=== PATIENT | female | born 1965 | race Caucasian/White ===

== ENCOUNTER 2022-07-06 16:34 | Emergency (ER) | payer MEDICAID ==
[2022-07-06] MEDS ORDERED: Acetaminophen/HYDROcodone 325-5 MG Tab PO ONE (17:31)
== END 2022-07-06 17:40 | disposition home or self-care (01) ==
LOC: MW.ED 16:34
DX: H66.001 Acute suppurative otitis media without spontaneous rupture of ear drum, right ear (principal)
CPT/HCPCS: 99283; A9270

== ENCOUNTER 2022-07-26 10:31 | Emergency (ER) | payer MEDICAID ==
[2022-07-26] MEDS ORDERED: Sodium Chloride 0.9% 10 ML Syringe FLUSH PRN (10:59)
[2022-07-26] MEDS ORDERED: Sodium Chloride 0.9% 2.5 ML Syringe FLUSH PRN (10:59)
[2022-07-26] MEDS ORDERED: Ketorolac 30 MG/ML SDV IVPUSH ONE (11:00)
[2022-07-26 11:34] LABS: CARBON DIOXIDE,CO2 25.7 mmol/L (21.0-32.0); POTASSIUM,K 3.8 mmol/L (3.5-5.1)
== END 2022-07-26 12:03 | disposition home or self-care (01) ==
LOC: MW.ED 10:31
DX: M54.12 Radiculopathy, cervical region (principal); I10 Essential (primary) hypertension; E66.9 Obesity, unspecified; Z68.39 Body mass index [BMI] 39.0-39.9, adult
CPT/HCPCS: 36415; 80053; 84484; 85025; 93005; 96374; 96375; 99283; J1885; J3360; J3490; 93010; 99284

== ENCOUNTER 2022-10-14 06:25 | Inpatient (IN) | payer BC, MEDICAID ==
[~2022-10-14 06:25] MED LIST: Famotidine 20 MG/2 ML SDV IVPUSH SCH; Scopolamine 1.5 MG Transdermal Patch TRDERM SCH
[2022-10-14] MEDS: Lactated Ringers 1,000 ML IV SCH ×2 (06:54→13:36)
[2022-10-14] MEDS ORDERED: Famotidine 20 MG/2 ML SDV ONE (06:57)
[2022-10-14] MEDS ORDERED: Ropivacaine 49.25 ML, Ketorolac 30 MG, EPINEPHrine 0.5 MG, cloNIDine 80 MCG in Sodium C... INJECT SCH (07:00)
[2022-10-14] MEDS ORDERED: Propofol 200 MG/20 ML SDV ONE ×4 (07:28→10:05)
[2022-10-14] MEDS ORDERED: fentaNYL 100 MCG/2 ML SDV ONE (07:28)
[2022-10-14] MEDS ORDERED: Dexamethasone 4 MG/ML 5 ML MDV ONE (07:28)
[2022-10-14] MEDS ORDERED: Ondansetron 4 MG/2 ML SDV ONE (07:28)
[2022-10-14] MEDS ORDERED: Lidocaine 2% 5 ML SDV ONE ×2 (07:28→07:34)
[2022-10-14] MEDS ORDERED: Ketorolac 30 MG/ML SDV ONE (07:28)
[2022-10-14] MEDS ORDERED: Bupivacaine 0.5% 10 ML SDV ONE (07:34)
[2022-10-14] MEDS ORDERED: Dexmedetomidine 200 MCG/2 ML SDV ONE (07:34)
[2022-10-14] MEDS ORDERED: Water For Injection, Sterile 20 ML ONE (07:34)
[2022-10-14] MEDS ORDERED: propofoL 50 ML ONE (07:36)
[2022-10-14] MEDS ORDERED: Tranexamic Acid 1,000 MG in Sodium Chloride 0.9% 100 ML IV ONE (08:00)
[2022-10-14] MEDS ORDERED: ceFAZolin 2 GM in Sodium Chloride 0.9% 100 ML IV SCH (08:00)
[2022-10-14] MEDS ORDERED: Naloxone 0.4 MG/ML SDV IVPUSH PRN (08:05)
[2022-10-14] MEDS ORDERED: fentaNYL 50 MCG/ML SDV IVPUSH PRN (08:05)
[2022-10-14] MEDS ORDERED: Ondansetron 4 MG/2 ML SDV IVPUSH PRN ×2 (08:05→10:52)
[2022-10-14] MEDS ORDERED: HYDROmorphone 1 MG/ML Syringe IVPUSH PRN (08:05)
[2022-10-14] MEDS ORDERED: droPERidol 5 MG/2 ML SDV IVPUSH PRN (08:05)
[2022-10-14] MEDS ORDERED: Morphine 2 MG/ML SYRINGE IVPUSH PRN (08:05)
[2022-10-14] MEDS ORDERED: Albuterol 0.083% 2.5 MG/3 ML Neb Soln NEB PRN (08:05)
[2022-10-14] MEDS ORDERED: Metoclopramide 10 MG/2 ML SDV IVPUSH PRN (08:05)
[2022-10-14] MEDS ORDERED: Tranexamic Acid 1,000 MG/10 ML Vial ONE (08:42)
[2022-10-14] MEDS ORDERED: Aluminum Hydroxide/Magnesium Hydroxide/Simethicone XS Susp 30 ML Cup PO PRN (10:52)
[2022-10-14] MEDS ORDERED: diphenhydrAMINE 25 MG Cap PO PRN (10:52)
[2022-10-14] MEDS ORDERED: oxyCODONE 5 MG Tab PO PRN (10:52)
[2022-10-14] MEDS ORDERED: Acetaminophen/oxyCODONE 325-5 MG Tab PO PRN ×2 (10:52→11:14)
[2022-10-14] MEDS ORDERED: Sodium Chloride 0.9% 2.5 ML Syringe FLUSH PRN (10:52)
[2022-10-14] MEDS ORDERED: traMADol 50 MG Tab PO PRN ×2 (10:52→11:24)
[2022-10-14] MEDS ORDERED: Sodium Chloride 0.9% 10 ML Syringe FLUSH PRN (10:52)
[2022-10-14] MEDS ORDERED: Glucagon,Human Recombinant 1 MG Vial IM PRN (11:46)
[2022-10-14] MEDS ORDERED: 50% Dextrose in Water 50 ML Syringe IVPUSH PRN (11:46)
[2022-10-14 12:25] LABS: CARBON DIOXIDE,CO2 25.8 mmol/L (21.0-32.0)
[2022-10-14] MEDS ORDERED: Acetaminophen 325 MG Tab PO PRN (13:00)
[2022-10-14] MEDS: Ketorolac 30 MG/ML SDV IVPUSH SCH ×3 (13:26→22:59)
[2022-10-14] MEDS ORDERED: Magnesium Sulfate/Water 4 GM in Premix Bag 1 BAG IV ONE (14:00)
[2022-10-14] MEDS ORDERED: Magnesium Sulfate/Water 100 ML ONE (14:21)
[2022-10-14] MEDS ORDERED: ceFAZolin 2 GM Vial ONE ×2 (15:27→22:26)
[2022-10-14] MEDS ORDERED: Sodium Chloride 0.9% 100 ML ONE (16:32)
[2022-10-14] MEDS: ceFAZolin 2 GM in Sodium Chloride 0.9% 50 ML IV SCH ×2 (16:34→23:00)
[2022-10-14] MEDS: Insulin Aspart 100 Units/ML 3 ML Pen SUBCUT SCH (17:03)
[2022-10-14] MEDS ORDERED: Aspirin 325 MG Tab ONE (18:03)
[2022-10-14] MEDS: Aspirin 325 MG Tab PO SCH (18:09)
[2022-10-14] MEDS: Docusate Sodium 100 MG Cap PO SCH (20:08)
[2022-10-14] MEDS: Metoprolol Succinate 25 MG Tab.ER PO SCH (22:19)
[2022-10-15] MEDS: Ketorolac 30 MG/ML SDV IVPUSH SCH (04:56)
[2022-10-15] MEDS: Morphine 2 MG/ML SYRINGE IVPUSH PRN ×4 (04:56→21:13)
[2022-10-15 06:32] LABS: CARBON DIOXIDE,CO2 24.6 mmol/L (21.0-32.0); POTASSIUM,K 4.1 mmol/L (3.5-5.1)
[2022-10-15] MEDS: Insulin Aspart 100 Units/ML 3 ML Pen SUBCUT SCH ×3 (06:40→16:56)
[2022-10-15] MEDS ORDERED: Ibuprofen 800 MG Tab PO PRN (09:00)
[2022-10-15] MEDS: Losartan 50 MG Tab PO SCH (09:02)
[2022-10-15] MEDS: Famotidine 20 MG Tab PO SCH (09:04)
[2022-10-15] MEDS: Docusate Sodium 100 MG Cap PO SCH ×2 (09:04→21:12)
[2022-10-15] MEDS: Aspirin 325 MG Tab PO SCH (09:05)
[2022-10-15] MEDS: oxyCODONE 5 MG Tab PO PRN ×2 (09:06→13:49)
[2022-10-15] MEDS: Polyethylene Glycol 3350 Powder 17 GM Packet PO SCH (09:08)
[2022-10-15] MEDS: Cefadroxil 500 MG Cap PO SCH ×2 (13:57→21:12)
[2022-10-15] MEDS: Metoprolol Succinate 25 MG Tab.ER PO SCH (21:12)
[2022-10-16] MEDS: Morphine 2 MG/ML SYRINGE IVPUSH PRN ×2 (00:34→04:18)
[2022-10-16] MEDS: oxyCODONE 5 MG Tab PO PRN ×4 (01:45→16:04)
[2022-10-16 07:06] LABS: CARBON DIOXIDE,CO2 27.4 mmol/L (21.0-32.0); POTASSIUM,K 4.1 mmol/L (3.5-5.1)
[2022-10-16] MEDS: Insulin Aspart 100 Units/ML 3 ML Pen SUBCUT SCH ×3 (08:07→16:59)
[2022-10-16] MEDS ORDERED: Magnesium Sulfate/Water 4 GM in Premix Bag 1 BAG IV ONE (08:07)
[2022-10-16] MEDS: Aspirin 325 MG Tab PO SCH (08:16)
[2022-10-16] MEDS: Polyethylene Glycol 3350 Powder 17 GM Packet PO SCH (08:16)
[2022-10-16] MEDS: Famotidine 20 MG Tab PO SCH (08:16)
[2022-10-16] MEDS: Docusate Sodium 100 MG Cap PO SCH (08:16)
[2022-10-16] MEDS: Losartan 50 MG Tab PO SCH (08:17)
[2022-10-16] MEDS: Ibuprofen 800 MG Tab PO SCH ×2 (08:32→14:01)
[2022-10-16] MEDS: Cefadroxil 500 MG Cap PO SCH (09:20)
== END 2022-10-16 16:45 | disposition home or self-care (01) | DRG 326 ==
LOC: MW.SDS 06:25 → MW.MS 11:27
PROVIDERS: ADMIT Orthopaedic Surgery; ATTEND Orthopaedic Surgery
PROC: 0SRC0J9 Replacement of Right Knee Joint with Synthetic Substitute, Cemented, Open Approach (ICD-10-PCS; principal; 2022-10-14)
DX: M17.11 Unilateral primary osteoarthritis, right knee (principal); I10 Essential (primary) hypertension; G47.33 Obstructive sleep apnea (adult) (pediatric); E66.01 Morbid (severe) obesity due to excess calories; R73.03 Prediabetes; Z68.41 Body mass index [BMI] 40.0-44.9, adult; Z79.84 Long term (current) use of oral hypoglycemic drugs; Z79.82 Long term (current) use of aspirin; Z90.710 Acquired absence of both cervix and uterus; Z79.899 Other long term (current) drug therapy
CPT/HCPCS: 36415; 73560-26-RT; 73560-RT; 80048; 82947; 83735; 85014; 85018; 85025; 86850; 86900; 86901; 97110-GP; 97161-GP; 97530-GP; 99222; 99232; A9270-GY; J0171; J0690; J0735; J1100; J1170; J1885; J2270; J2405; J2704; J2795; J3010; J3475; J3490; J7120

== ENCOUNTER 2022-10-20 13:12 | Emergency (ER) | payer BC, MEDICAID ==
[2022-10-20] MEDS ORDERED: Sodium Chloride 0.9% 2.5 ML Syringe FLUSH PRN ×2 (14:00→14:09)
[2022-10-20] MEDS ORDERED: Sodium Chloride 0.9% 10 ML Syringe FLUSH PRN ×2 (14:00→14:09)
[2022-10-20] MEDS ORDERED: Morphine 4 MG/ML Syringe IVPUSH STA ×2 (14:10→15:36)
[2022-10-20 15:33] LABS: CARBON DIOXIDE,CO2 29.7 mmol/L (21.0-32.0); POTASSIUM,K 4.1 mmol/L (3.5-5.1)
[2022-10-20] MEDS ORDERED: Magnesium Sulfate/Water 2 GM in Premix Bag 1 BAG IV STA (15:44)
[2022-10-20] MEDS ORDERED: Lidocaine 1% 5 ML VIAL ONE (17:18)
[2022-10-20] MEDS ORDERED: Iopamidol 755 MG/ML 500 ML Multipack Bottle IVPUSH ONE (18:08)
== END 2022-10-20 19:56 | disposition home or self-care (01) ==
LOC: MW.ED 13:12
DX: R60.0 Localized edema (principal); M79.661 Pain in right lower leg; R06.00 Dyspnea, unspecified; I10 Essential (primary) hypertension; E11.9 Type 2 diabetes mellitus without complications; E66.9 Obesity, unspecified; Z68.42 Body mass index [BMI] 45.0-49.9, adult; Z79.899 Other long term (current) drug therapy; Z79.84 Long term (current) use of oral hypoglycemic drugs; Z79.82 Long term (current) use of aspirin; Z90.710 Acquired absence of both cervix and uterus
CPT/HCPCS: 36415; 71045; 71275; 80053; 81003; 83735; 84484; 85025; 85379; 85610; 93005; 93970; 96365; 96375; 96376; 99285; J2270; J3475; J3490; Q9967; 36410; 93010; 99284

== ENCOUNTER 2023-03-23 09:53 | Day surgery (SDC) | payer BC, MEDICAID ==
[~2023-03-23 09:53] MED LIST changes: +Albuterol 0.083% 2.5 MG/3 ML Neb Soln NEB PRN; -Famotidine 20 MG/2 ML SDV IVPUSH SCH; +HYDROmorphone 1 MG/ML Syringe IVPUSH PRN; +Metoclopramide 10 MG/2 ML SDV IVPUSH PRN; +Morphine 2 MG/ML SYRINGE IVPUSH PRN; +Naloxone 0.4 MG/ML SDV IVPUSH PRN; +Ondansetron 4 MG/2 ML SDV IVPUSH PRN; -Scopolamine 1.5 MG Transdermal Patch TRDERM SCH; +droPERidol 5 MG/2 ML SDV IVPUSH PRN; +fentaNYL 50 MCG/ML SDV IVPUSH PRN
[2023-03-23] MEDS ORDERED: propofoL 50 ML ONE (10:10)
[2023-03-23] MEDS ORDERED: Propofol 200 MG/20 ML SDV ONE (10:10)
[2023-03-23] MEDS ORDERED: fentaNYL 250 MCG/5 ML SDV ONE (10:10)
[2023-03-23] MEDS ORDERED: Lactated Ringers 1,000 ML IV SCH (11:00)
[2023-03-23] MEDS ORDERED: Lidocaine 1% 20 ML MDV ONE (11:17)
[2023-03-23] MEDS ORDERED: Bupivacaine 0.5% 30 ML SDV ONE (11:17)
[2023-03-23] MEDS ORDERED: ceFAZolin 2 GM Vial ONE (11:46)
== END 2023-03-23 13:15 | disposition home or self-care (01) ==
LOC: MW.SDS 09:53
PROVIDERS: ATTEND Surgery
DX: L72.0 Epidermal cyst (principal); R92.8 Other abnormal and inconclusive findings on diagnostic imaging of breast; J20.9 Acute bronchitis, unspecified; E27.8 Other specified disorders of adrenal gland; M19.90 Unspecified osteoarthritis, unspecified site; N60.09 Solitary cyst of unspecified breast; E11.9 Type 2 diabetes mellitus without complications; E78.5 Hyperlipidemia, unspecified; I10 Essential (primary) hypertension; G47.33 Obstructive sleep apnea (adult) (pediatric); M17.11 Unilateral primary osteoarthritis, right knee; Z96.659 Presence of unspecified artificial knee joint; Z79.84 Long term (current) use of oral hypoglycemic drugs; Z79.899 Other long term (current) drug therapy; Z98.890 Other specified postprocedural states; Z90.710 Acquired absence of both cervix and uterus; Z87.891 Personal history of nicotine dependence
CPT/HCPCS: 19120; J0690; J2704; J3010; J3490; J7120; 00400

== ENCOUNTER 2023-05-07 13:57 | Emergency (ER) | payer BC, MEDICAID ==
[2023-05-07] MEDS ORDERED: Sodium Chloride 0.9% 1,000 ML IV ONE (14:21)
[2023-05-07] MEDS ORDERED: Sodium Chloride 0.9% 2.5 ML Syringe FLUSH PRN (14:21)
[2023-05-07] MEDS ORDERED: diphenhydrAMINE 50 MG/ML SDV IVPUSH ONE (14:21)
[2023-05-07] MEDS ORDERED: Sodium Chloride 0.9% 10 ML Syringe FLUSH PRN (14:21)
[2023-05-07] MEDS ORDERED: Metoclopramide 10 MG/2 ML SDV IVPUSH ONE (14:21)
[2023-05-07 14:30] LABS: BASOPHILS ABSOLUTE AUTO 0.06 K/uL (0.00-0.20); BASOPHILS PERCENT AUTO 0.8 % (0.0-1.0); EOSINOPHILS ABSOLUTE AUTO 0.38 K/uL (0.00-0.45); EOSINOPHILS PERCENT AUTO 5.2 % (0.0-6.0); HEMATOCRIT 42.3 % (37.0-47.0); IMMATURE GRAN ABSOLUTE AUTO 0.02 K/uL (0.00-0.05); IMMATURE GRAN PERCENT AUTO 0.3 % (0.0-0.4); LYMPHOCYTES ABSOLUTE AUTO 2.44 K/uL (1.00-4.80); LYMPHOCYTES PERCENT AUTO 33.6 % (24.0-44.0); MEAN CORPUSCULAR HEMOGLOBIN 30.1 pg (28.0-32.0); MEAN CORPUSCULAR HGB CONC 33.1 g/dL (32.0-36.0); MONOCYTES ABSOLUTE AUTO 0.68 K/uL (0.00-0.80); MONOCYTES PERCENT AUTO 9.4 % (0.0-8.0); NEUTROPHILS ABSOLUTE AUTO 3.69 K/uL (1.80-7.70); NEUTROPHILS PERCENT AUTO 50.7 % (41.0-71.0); PLATELET COUNT,PLT 268 K/uL (150-400); RED BLOOD CELL COUNT 4.65 M/uL (4.10-5.30); WHITE BLOOD CELL COUNT,WBC 7.27 K/uL (3.9-11.3)
[2023-05-07 14:43] LABS: INR 0.98 (0.86-1.11)
[2023-05-07 14:52] LABS: A/G RATIO 0.9 (0.9-1.6); ALBUMIN 3.6 g/dL (3.4-5.0); BILIRUBIN TOTAL 0.2 mg/dL (0.2-1.0); CARBON DIOXIDE,CO2 27.7 mmol/L (21.0-32.0); CREATININE 0.6 mg/dL (0.6-1.0); EST CRCL DRUG DOSING (CG) 87.18 mL/min; MAGNESIUM 1.7 mg/dL (1.8-2.4); POTASSIUM,K 4.2 mmol/L (3.5-5.1); PROTEIN TOTAL,TP 7.6 g/dL (6.4-8.2)
[2023-05-07] MEDS ORDERED: Calcium Gluconate 10% 1 GM/10 ML SDV ONE (14:59)
[2023-05-07] MEDS ORDERED: Iopamidol 755 MG/ML 500 ML Multipack Bottle IVPUSH ONE (17:55)
[2023-05-07] MEDS ORDERED: Aspirin 81 MG Tab.Chew PO ONE (19:04)
== END 2023-05-07 20:16 ==
LOC: MW.ED 13:57
DX: I10 Essential (primary) hypertension (principal); E11.9 Type 2 diabetes mellitus without complications; E66.9 Obesity, unspecified; Z68.41 Body mass index [BMI] 40.0-44.9, adult; Z79.84 Long term (current) use of oral hypoglycemic drugs; Z79.899 Other long term (current) drug therapy
CPT/HCPCS: 36415; 70450; 70496; 70498; 71046; 80053; 82947; 83735; 83880; 84484; 85025; 85610; 93005; 96374; 96375; 99285; A9270; J1200; J2765; J3490; J7030; Q9967; 93010; 99291

== ENCOUNTER 2023-10-17 15:04 | Emergency (ER) | payer BC ==
[2023-10-17 16:53] LABS: BASOPHILS ABSOLUTE AUTO 0.07 K/uL (0.00-0.20); BASOPHILS PERCENT AUTO 0.6 % (0.0-1.0); EOSINOPHILS ABSOLUTE AUTO 0.34 K/uL (0.00-0.45); EOSINOPHILS PERCENT AUTO 2.8 % (0.0-6.0); HEMATOCRIT 43.9 % (37.0-47.0); HEMOGLOBIN 14.8 g/dL (12.0-16.0); IMMATURE GRAN ABSOLUTE AUTO 0.07 K/uL (0.00-0.05); IMMATURE GRAN PERCENT AUTO 0.6 % (0.0-0.4); LYMPHOCYTES ABSOLUTE AUTO 2.36 K/uL (1.00-4.80); LYMPHOCYTES PERCENT AUTO 19.5 % (24.0-44.0); MEAN CORPUSCULAR HEMOGLOBIN 30.5 pg (28.0-32.0); MEAN CORPUSCULAR HGB CONC 33.7 g/dL (32.0-36.0); MEAN CORPUSCULAR VOLUME 90.5 fL (83.0-99.0); MEAN PLATELET VOLUME 9.6 fL (9.4-12.3); MONOCYTES ABSOLUTE AUTO 1.01 K/uL (0.00-0.80); MONOCYTES PERCENT AUTO 8.4 % (0.0-8.0); NEUTROPHILS ABSOLUTE AUTO 8.23 K/uL (1.80-7.70); NEUTROPHILS PERCENT AUTO 68.1 % (41.0-71.0); PLATELET COUNT,PLT 264 K/uL (150-400); RED BLOOD CELL COUNT 4.85 M/uL (4.10-5.30); WHITE BLOOD CELL COUNT,WBC 12.08 K/uL (3.9-11.3)
[2023-10-17 16:57] LABS: CORONAVIRUS COVID-19 NAA NEGATIVE (NEGATIVE); INFLUENZA A NAA NEGATIVE (NEGATIVE); INFLUENZA B NAA NEGATIVE (NEGATIVE); RESPIRATORY SYNCYTIAL VIR NAA NEGATIVE (NEGATIVE)
[2023-10-17 17:19] LABS: A/G RATIO 0.8 (0.9-1.6); ALBUMIN 3.6 g/dL (3.4-5.0); BILIRUBIN TOTAL 0.3 mg/dL (0.2-1.0); CARBON DIOXIDE,CO2 26.1 mmol/L (21.0-32.0); CREATININE 0.7 mg/dL (0.6-1.0); EST CRCL DRUG DOSING (CG) 73.8 mL/min; POTASSIUM,K 3.7 mmol/L (3.5-5.1); PROTEIN TOTAL,TP 7.9 g/dL (6.4-8.2)
[2023-10-17] MEDS: Doxycycline 100 MG Cap PO ONE (17:51)
[2023-10-17] MEDS: Albuterol 8 GM Inhaler INH ONE (17:52)
== END 2023-10-17 17:57 | disposition home or self-care (01) ==
LOC: MW.ED 15:04
DX: J40 Bronchitis, not specified as acute or chronic (principal); I10 Essential (primary) hypertension; E11.9 Type 2 diabetes mellitus without complications; E66.9 Obesity, unspecified; Z75.8 Other problems related to medical facilities and other health care; Z79.84 Long term (current) use of oral hypoglycemic drugs; Z79.899 Other long term (current) drug therapy; Z68.41 Body mass index [BMI] 40.0-44.9, adult
CPT/HCPCS: 0241U; 36415; 71045; 80053; 84484; 85025; 93005; 99285; A9270

== ENCOUNTER 2024-05-11 07:31 | Day surgery (SDC) | payer OTHER ==
[2024-05-11] MEDS ORDERED: Ropivacaine 0.5% 5 MG/ML 30 ML SDV ONE (07:56)
[2024-05-11] MEDS ORDERED: propofoL 50 ML ONE (07:57)
[2024-05-11] MEDS ORDERED: Propofol 200 MG/20 ML SDV ONE (07:58)
[2024-05-11] MEDS ORDERED: fentaNYL 250 MCG/5 ML SDV ONE ×2 (07:58→09:55)
[2024-05-11] MEDS ORDERED: Ketamine HCL/NACL, ISO-OSM 50 MG/5 ML Syringe ONE ×2 (07:58→09:54)
[2024-05-11] MEDS ORDERED: Morphine 10 MG/ML SDV ONE (07:58)
[2024-05-11] MEDS ORDERED: Lidocaine 2% 11 ML Jelly Filled Syringe ONE (08:00)
[2024-05-11] MEDS ORDERED: Water For Injection, Sterile 60 ML ONE (08:06)
[2024-05-11] MEDS ORDERED: dexmedeTOMIDine HCl 200 MCG/2 ML SDV ONE (08:06)
[2024-05-11] MEDS ORDERED: Bupivacaine 0.5% 30 ML SDV ONE (08:07)
[2024-05-11] MEDS: Lactated Ringers 1,000 ML IV SCH (08:30)
[2024-05-11] MEDS ORDERED: ceFAZolin 2 GM Vial ONE (09:12)
[2024-05-11] MEDS ORDERED: ceFAZolin 1 GM Vial ONE (09:12)
[2024-05-11] MEDS ORDERED: fentaNYL 100 MCG/2 ML SDV ONE (09:45)
[2024-05-11] MEDS ORDERED: Famotidine 20 MG/2 ML SDV ONE (09:49)
[2024-05-11] MEDS ORDERED: ePHEDrine 50 MG/ML SDV ONE (10:03)
[2024-05-11] MEDS ORDERED: propofoL 100 ML ONE (10:25)
[2024-05-11] MEDS ORDERED: Ondansetron 4 MG/2 ML SDV ONE (10:25)
[2024-05-11] MEDS ORDERED: Sugammadex Sodium 200 MG/2 ML VIAL IV ONE (10:25)
[2024-05-11] MEDS ORDERED: Dexamethasone 4 MG/ML 5 ML MDV ONE (10:25)
[2024-05-11] MEDS: fentaNYL 50 MCG/ML SDV IVPUSH PRN (12:05)
[2024-05-11] MEDS: fentaNYL 50 MCG/ML SDV ONE (14:16)
== END 2024-05-11 13:30 | disposition home or self-care (01) ==
LOC: MW.SDS 07:31
PROVIDERS: ATTEND Surgery
DX: K43.9 Ventral hernia without obstruction or gangrene (principal); E11.9 Type 2 diabetes mellitus without complications; E78.5 Hyperlipidemia, unspecified; I10 Essential (primary) hypertension; E66.01 Morbid (severe) obesity due to excess calories; Z68.41 Body mass index [BMI] 40.0-44.9, adult
CPT/HCPCS: 49594; 64488; A9270; C1781; J0131; J0665; J0690; J1100; J2272; J2405; J2704; J2795; J3010; J3490; J7120; 00840

== ENCOUNTER 2024-08-27 14:18 | Emergency (ER) | payer BC, OTHER ==
[2024-08-27] MEDS: Lidocaine 4% Patch TOP ONE (14:54)
[2024-08-27] MEDS: Acetaminophen 500 MG Tab PO ONE (14:54)
== END 2024-08-27 15:42 | disposition home or self-care (01) ==
LOC: MW.ED 14:18
DX: M25.562 Pain in left knee (principal); M25.552 Pain in left hip; I10 Essential (primary) hypertension; E11.9 Type 2 diabetes mellitus without complications; E66.9 Obesity, unspecified; Z90.710 Acquired absence of both cervix and uterus; Z79.899 Other long term (current) drug therapy; Z75.8 Other problems related to medical facilities and other health care
CPT/HCPCS: 73562; 99283; A9270

== ENCOUNTER 2025-01-29 07:31 | Emergency (ER) | payer BC ==
[2025-01-29 08:32] LABS: INR 0.98 (0.86-1.11); PTT,PARTIAL THROMBOPLSTIN TIME 22.1 SEC (23.9-30.7)
[2025-01-29 08:36] LABS: BASOPHILS ABSOLUTE AUTO 0.05 K/uL (0.00-0.20); BASOPHILS PERCENT AUTO 0.9 % (0.0-1.0); EOSINOPHILS ABSOLUTE AUTO 0.30 K/uL (0.00-0.45); EOSINOPHILS PERCENT AUTO 5.4 % (0.0-6.0); IMMATURE GRAN ABSOLUTE AUTO 0.03 K/uL (0.00-0.05); IMMATURE GRAN PERCENT AUTO 0.5 % (0.0-0.4); LYMPHOCYTES ABSOLUTE AUTO 1.77 K/uL (1.00-4.80); LYMPHOCYTES PERCENT AUTO 32.0 % (24.0-44.0); MEAN PLATELET VOLUME 10.3 fL (9.4-12.3); MONOCYTES ABSOLUTE AUTO 0.51 K/uL (0.00-0.80); MONOCYTES PERCENT AUTO 9.2 % (0.0-8.0); NEUTROPHILS ABSOLUTE AUTO 2.87 K/uL (1.80-7.70); NEUTROPHILS PERCENT AUTO 52.0 % (41.0-71.0); NRBC ABSOLUTE 0.00 K/uL (0.00-0.02); NRBC PERCENT 0.0 /100WBC (0.0-0.2); PLATELET COUNT,PLT 214 K/uL (150-400); RED BLOOD CELL COUNT 4.46 M/uL (4.10-5.30); WHITE BLOOD CELL COUNT,WBC 5.53 K/uL (3.9-11.3)
[2025-01-29 08:42] LABS: A/G RATIO 0.9 (0.9-1.6); ALANINE AMINOTRANSFERASE,ALT 31.0 IU/L (14-63); ASPARTATE AMNIOTRANSFERASE,AST 21.0 IU/L (15-37); BILIRUBIN TOTAL 0.4 mg/dL (0.2-1.0); BLOOD UREA NITROGEN,BUN 21.0 mg/dL (7.0-18.0); CARBON DIOXIDE,CO2 25.5 mmol/L (21.0-32.0); CHLORIDE,CL 107.0 mmol/L (98-107); CREATININE 0.7 mg/dL (0.6-1.0); EST CRCL DRUG DOSING (CG) 69.81 mL/min; GLUCOSE RANDOM 118.0 mg/dL (74-106); POTASSIUM,K 4.4 mmol/L (3.5-5.1); PROTEIN TOTAL,TP 7.0 g/dL (6.4-8.2); SODIUM,NA 142.0 mmol/L (136-145)
[2025-01-29 08:47] LABS: ESTIMATED GFR 98.0 mL/min (>60)
[2025-01-29 09:24] LABS: APPEARANCE,URINE CLEAR; GLUCOSE,URINE NEGATIVE (NEGATIVE); OCCULT BLOOD,URINE NEGATIVE (NEGATIVE)
[2025-01-29] MEDS: hydrALAZINE 20 MG/ML SDV IM ONE (11:30)
== END 2025-01-29 12:02 | disposition home or self-care (01) ==
LOC: MW.ED 07:31
DX: I10 Essential (primary) hypertension (principal); E11.9 Type 2 diabetes mellitus without complications; E66.9 Obesity, unspecified; Z79.899 Other long term (current) drug therapy; Z90.710 Acquired absence of both cervix and uterus; Z68.42 Body mass index [BMI] 45.0-49.9, adult
CPT/HCPCS: 36415; 70450; 71045; 80053; 81003; 83735; 83880; 84484; 85025; 85610; 85730; 93005; 96372; 99284; A9270; J0360; 93010; 99283

== ENCOUNTER 2025-02-27 06:46 | Emergency (ER) | payer BC | END 2025-02-27 08:01 | disposition home or self-care (01) | LOC: MW.ED 06:46 | DX: J40 Bronchitis, not specified as acute or chronic (principal); I10 Essential (primary) hypertension; E11.9 Type 2 diabetes mellitus without complications; Z98.84 Bariatric surgery status; Z90.710 Acquired absence of both cervix and uterus; Z79.899 Other long term (current) drug therapy | CPT/HCPCS: 71046; 87428; 87651; 99284; A9270; 99283 ==

== ENCOUNTER 2025-03-01 06:58 | Emergency (ER) | payer BC ==
[2025-03-01] MEDS ORDERED: Sodium Chloride 0.9% 10 ML Syringe FLUSH PRN (08:30)
[2025-03-01] MEDS ORDERED: Sodium Chloride 0.9% 2.5 ML Syringe FLUSH PRN (08:30)
[2025-03-01 09:49] LABS: BASOPHILS ABSOLUTE AUTO 0.06 K/uL (0.00-0.20); BASOPHILS PERCENT AUTO 1.0 % (0.0-1.0); EOSINOPHILS ABSOLUTE AUTO 0.49 K/uL (0.00-0.45); EOSINOPHILS PERCENT AUTO 8.3 % (0.0-6.0); IMMATURE GRAN ABSOLUTE AUTO 0.02 K/uL (0.00-0.05); IMMATURE GRAN PERCENT AUTO 0.3 % (0.0-0.4); LYMPHOCYTES ABSOLUTE AUTO 1.82 K/uL (1.00-4.80); LYMPHOCYTES PERCENT AUTO 30.7 % (24.0-44.0); MEAN PLATELET VOLUME 10.1 fL (9.4-12.3); MONOCYTES ABSOLUTE AUTO 0.59 K/uL (0.00-0.80); MONOCYTES PERCENT AUTO 9.9 % (0.0-8.0); NEUTROPHILS ABSOLUTE AUTO 2.95 K/uL (1.80-7.70); NEUTROPHILS PERCENT AUTO 49.8 % (41.0-71.0); NRBC ABSOLUTE 0.00 K/uL (0.00-0.02); NRBC PERCENT 0.0 /100WBC (0.0-0.2); PLATELET COUNT,PLT 210 K/uL (150-400); RED BLOOD CELL COUNT 4.78 M/uL (4.10-5.30); WHITE BLOOD CELL COUNT,WBC 5.93 K/uL (3.9-11.3)
[2025-03-01 09:58] LABS: APPEARANCE,URINE CLEAR; GLUCOSE,URINE NEGATIVE (NEGATIVE); OCCULT BLOOD,URINE NEGATIVE (NEGATIVE)
[2025-03-01 10:25] LABS: A/G RATIO 0.9 (0.9-1.6); ALANINE AMINOTRANSFERASE,ALT 51.0 IU/L (14-63); ASPARTATE AMNIOTRANSFERASE,AST 34.0 IU/L (15-37); BILIRUBIN TOTAL 0.4 mg/dL (0.2-1.0); BLOOD UREA NITROGEN,BUN 11.0 mg/dL (7.0-18.0); CARBON DIOXIDE,CO2 27.9 mmol/L (21.0-32.0); CHLORIDE,CL 103.0 mmol/L (98-107); CREATININE 0.7 mg/dL (0.6-1.0); EST CRCL DRUG DOSING (CG) 69.81 mL/min; GLUCOSE RANDOM 107.0 mg/dL (74-106); POTASSIUM,K 4.0 mmol/L (3.5-5.1); PROTEIN TOTAL,TP 7.8 g/dL (6.4-8.2); SODIUM,NA 140.0 mmol/L (136-145)
[2025-03-01 10:31] LABS: ESTIMATED GFR 98.0 mL/min (>60)
[2025-03-01 10:34] LABS: LACTIC ACID 1.6 mmol/L (0.4-2.0)
[2025-03-01] MEDS: Iopamidol 755 MG/ML 500 ML Multipack Bottle IVPUSH STA (12:25)
== END 2025-03-01 14:30 | disposition home or self-care (01) ==
LOC: MW.ED 06:58
DX: J40 Bronchitis, not specified as acute or chronic (principal); I10 Essential (primary) hypertension; Z79.899 Other long term (current) drug therapy; E11.9 Type 2 diabetes mellitus without complications; E66.9 Obesity, unspecified; Z90.710 Acquired absence of both cervix and uterus
CPT/HCPCS: 36415; 71046; 71275; 80053; 81003; 83605; 83690; 83735; 84484; 85025; 85379; 87040; 93005; 99285; A9270; Q9967; 36410